=== PATIENT | female | born 1990 | race Caucasian/White ===

== ENCOUNTER 2023-01-12 08:50 | Emergency (ER) | payer BC, SELFPAY ==
--- NOTE | ~2023-01-12 | US_ITS ---
EXAMINATION: US venous doppler [facility] DATE: 01/12/2023 10:33 INDICATION: Left lower limb pain TECHNIQUE: Grayscale ultrasound images without and with compression and Doppler ultrasound images of the left lower extremity veins were obtained. COMPARISON: None. FINDINGS: The visualized portions of left common femoral vein, profunda (deep) femoral vein, femoral vein, popl iteal vein, peroneal veins, posterior tibial veins, gastrocnemius vein, lesser saphenous vein and gre ater saphenous vein outflow are patent. IMPRESSION: 1. No deep venous thrombosis in the left lower limb. Reviewed, dictated and finalized at location A. CIATE PROFESSOR OF GEOLOGY
[2023-01-12 08:53] VITALS: BP 146/99; PULSE 93; RESP 18; TEMP 36.4; O2SAT 100
--- NOTE | 2023-01-12 09:55 | ED.GENADULT ---
HPI - General Adult General Chief complaint: Extremity Injury, Lower Stated complaint: calf pain Time Seen by Provider: 01/12/23 09:21 History of Present Illness HPI narrative: Rosalia Donato is a 32 y/o female who presents with reports of having left calf pain that started last night at around 1730. She states that her big puppy ran head first in to the back of her left calf and started to have a lot of pain. She denies any pain to her ankle/ gandhi area. No numbness/tingling to her extremity. ROM to ankle is intact. Related Data Allergies Allergy/AdvReac Type Severity Reaction Status Date / Time No Known Allergies Allergy Verified 01/12/23 10:01 Review of Systems Review of Systems: CONSTITUTIONAL: Denies fever, chills, or sweats. EYES: Denies visual changes, redness, or discharge. ENT: Denies rhinorrhea, congestion, sore throat, or otalgia. CARDIOVASCULAR: Denies chest pain, palpitations, or edema. RESPIRATORY: Denies cough or dyspnea. GASTROINTESTINAL: Denies abdominal pain, nausea, vomiting, or diarrhea. GENITOURINARY: Denies dysuria or hematuria. SKIN: Denies rash or itching. MUSCULOSKELETAL: Complains of pain to left calf that started yesterday at around 1730 after her dog ran into her leg. NEUROLOGIC: Denies headache, numbness, dizziness, or weakness. PSYCHIATRIC: Denies anxiety or depression. Exam Narrative: GENERAL: Well-appearing, well-nourished, and in no acute distress. HEAD: Normocephalic, atraumatic. EYES: PERRLA and EOMI. ENT: Nares clear, no rhinorrhea or epistaxis. Mucous membranes moist. Oropharynx without tonsillar hypertrophy exudate or other lesions. NECK: Supple. No adenopathy or masses. No carotid bruits or JVD CHEST: Clear to auscultation. No respiratory distress. No wheezes rales or rhonchi HEART: Regular rate and rhythm. No murmur heard. Normal peripheral pulses. ABDOMEN: Soft, nontender, nondistended, normal active bowel sounds. EXTREMITIES: Normal range of motion. possible slight swelling noted to calf area, distal pulses present and strong/ ROM intact to ankle and leg/ no erythema/ ecchymosis noted on exam SKIN: Warm, dry, no rash. NEURO: No focal deficits. Alert and oriented x3. PSYCH: Normal mood and affect. Course Vital Signs Vital signs: Vital Signs Temperature 36.4 C 01/12/23 08:53 Pulse Rate 93 01/12/23 08:53 Respiratory Rate 18 01/12/23 08:53 Blood Pressure 146/99 H 01/12/23 08:53 Pulse Oximetry 100 01/12/23 08:53 Oxygen Delivery Room Air 01/12/23 08:53 Temperature 36.4 C 01/12/23 08:53 Pulse Rate 93 01/12/23 08:53 Respiratory Rate 18 01/12/23 08:53 Blood Pressure 146/99 H 01/12/23 08:53 Pulse Oximetry 100 01/12/23 08:53 Oxygen Delivery Room Air 01/12/23 08:53 Medical Decision Making MDM Narrative Medical decision making narrative: Normal range of motion. possible slight swelling noted to calf area, distal pulses present and strong/ ROM intact to ankle and leg/ no erythema/ ecchymosis noted on exam US- negative for DVT Likely a muscle contusion will d/c home with RICE therapy Close follow up with PCP Strict return precautions. Vital Signs Vital Signs: Vital Signs Temperature 36.4 C 01/12/23 08:53 Pulse Rate 93 01/12/23 08:53 Respiratory Rate 18 01/12/23 08:53 Blood Pressure 146/99 H 01/12/23 08:53 Pulse Oximetry 100 01/12/23 08:53 Oxygen Delivery Room Air 01/12/23 08:53 Temperature 36.4 C 01/12/23 08:53 Pulse Rate 93 01/12/23 08:53 Respiratory Rate 18 01/12/23 08:53 Blood Pressure 146/99 H 01/12/23 08:53 Pulse Oximetry 100 01/12/23 08:53 Oxygen Delivery Room Air 01/12/23 08:53 Vitals reviewed by me. Imaging Data My impression: Impressions Venous Doppler Study 01/12/23 10:41 IMPRESSION: 1. No deep venous thrombosis in the left lower limb. Discharge Plan Discharge Clinical Impression: Muscle contusion Contusion of left leg
[2023-01-12] MEDS: NAPROXEN 500 MG TABLET PO (10:04)
[2023-01-12] MEDS: ACETAMINOPHEN 500 MG TABLET 1000 MG PO (10:04)
== END 2023-01-12 11:33 | disposition home or self-care (01) ==
PROVIDERS: Emergency Provider Nurse Practitioner Family; PCP Family Medicine
DX: S80.12XA Contusion of left lower leg, initial encounter (principal); W54.1XXA Struck by dog, initial encounter
CPT/HCPCS: 93971; 99284; A9270

== ENCOUNTER 2023-03-23 07:41 | Emergency (ER) | payer BC, SELFPAY ==
--- NOTE | ~2023-03-23 | XR_ITS ---
XR chest 1V portable INDICATION: Shortness of breath, cough and chills. Asthma. TECHNIQUE: 2 view chest. FINDINGS: No prior studies for comparison. There is mild bilateral interstitial prominence and peribronchial cuffing. There is no focal consoli dation, pleural effusion, or pneumothorax. The cardiomediastinal silhouette is normal. IMPRESSION: 1. Findings most consistent with bronchiolitis versus an atypical or viral pneumonia. Reviewed, dictated and finalized at location B. COORDINATOR IMPRESSION: 1. Findings most consistent with bronchiolitis versus an atypical or viral pne [facility].
[2023-03-23 07:48] VITALS: BP 141/86; PULSE 113; RESP 18; TEMP 36.3; O2SAT 98
[2023-03-23 08:38] LABS: Influenza A QL RT-PCR Negative (Negative); Influenza B QL RT-PCR Negative (Negative); RSV RNA, RT-PCR Negative (Negative); SARS-CoV-2 RNA PCR Positive (Negative)
--- NOTE | 2023-03-23 08:44 | ED.GENADULT ---
HPI - General Adult General Chief complaint: Upper Respiratory Infection Stated complaint: flu Time Seen by Provider: 03/23/23 07:50 History of Present Illness HPI narrative: [age] old female presenting to the emergency department for evaluation of increased cough congestion and body aches that started yesterday. Patient states she was running a fever yesterday. Related Data Allergies Allergy/AdvReac Type Severity Reaction Status Date / Time No Known Allergies Allergy Verified 01/12/23 10:01 Review of Systems Review of Systems: All systems reviewed & are unremarkable except as noted in HPI and below Exam Narrative: APPEARANCE: Well appearing, no pain, no distress, well-nourished. HEAD: normocephalic, atraumatic. EYES: PERRLA/EOMI, conjunctivae clear. NOSE: Normal no drainage EARS:TMS clear with good light reflex. THROAT: Pharynx clear, no exudate. NECK: Supple. No adenopathy, no masses. RESPIRATORY: Airway patent, respirations nonlabored. Clear to auscultation bilaterally, no rales, rhonchi, wheezing. CARDIOVASCULAR: Regular rate and rhythm without murmurs rubs or gallops. ABDOMINAL: Soft, nontender, nondistended, normal bowel sounds MUSCULOSKELETAL: Moves all extremities. Strength/ROM intact, No edema, No calf tenderness. NEURO: Alert. Cranial nerves II through XII intact. Grossly intact SKIN: Warm, dry. Normal Color Course Course Emergency Course: 32-year-old female presenting to the emergency department for evaluation of cough and congestion. Patient did test positive for COVID. Chest x-ray showed atypical or viral pneumonia. Patient will be provided albuterol inhaler and Tessalon Perles for symptom control at home. Patient was updated on the results of the workup. All questions concerns were addressed and patient was well-appearing at time of discharge. Vital Signs Vital signs: Vital Signs Temperature 97.3 F L 03/23/23 07:48 Pulse Rate 113 H 03/23/23 07:48 Respiratory Rate 18 03/23/23 07:48 Blood Pressure 141/86 H 03/23/23 07:48 Pulse Oximetry 98 03/23/23 07:48 Oxygen Delivery Room Air 03/23/23 07:48 Temperature 97.3 F L 03/23/23 07:48 Pulse Rate 113 H 03/23/23 07:48 Respiratory Rate 16 03/23/23 09:05 Blood Pressure 141/86 H 03/23/23 07:48 Pulse Oximetry 97 03/23/23 09:05 Oxygen Delivery Room Air 03/23/23 07:48 Medical Decision Making Differential Diagnosis Differential Diagnosis: COVID, RSV, influenza, pneumonia Vital Signs Vital Signs: Vital Signs Temperature 97.3 F L 03/23/23 07:48 Pulse Rate 113 H 03/23/23 07:48 Respiratory Rate 18 03/23/23 07:48 Blood Pressure 141/86 H 03/23/23 07:48 Pulse Oximetry 98 03/23/23 07:48 Oxygen Delivery Room Air 03/23/23 07:48 Temperature 97.3 F L 03/23/23 07:48 Pulse Rate 113 H 03/23/23 07:48 Respiratory Rate 16 03/23/23 09:05 Blood Pressure 141/86 H 03/23/23 07:48 Pulse Oximetry 97 03/23/23 09:05 Oxygen Delivery Room Air 03/23/23 07:48 Lab Data Labs: Lab Results 03/23/23 Range/Units 07:57 Influenza A (RT-PCR) Negative (Negative) Influenza B (RT-PCR) Negative (Negative) RSV (RT-PCR) Negative (Negative) SARS-CoV-2 RNA (RT-PCR) Positive A (Negative) Discharge Plan Discharge Clinical Impression: COVID Patient Disposition: Home, Self-Care Condition: Stable Instructions: Antibiotic Form, COVID-19 (Coronavirus Disease 2019) (ED) Additional Instructions: Tylenol and ibuprofen for fever and for body aches. Albuterol inhaler for wheeze and Tessalon Perles for cough. Have close follow-up with your primary care physician. If you have any worsening symptoms then please call or return to the emergency department. Prescriptions: New albuterol sulfate 90 mcg/actuation HFA aerosol inhaler 1 puff inhalation QID PRN (Reason: shortness of breath or wheezing) Qty: 6.7 0RF benzonatate 100 mg capsule 100 mg PO Q6H PRN (R
[2023-03-23 09:05] VITALS: RESP 16; O2SAT 97
== END 2023-03-23 09:05 | disposition home or self-care (01) ==
PROVIDERS: Emergency Provider Emergency Medicine; PCP Family Medicine
DX: U07.1 COVID-19 (principal)
CPT/HCPCS: 71045; 87637; 99283

== ENCOUNTER 2023-09-04 12:55 | Emergency (ER) | payer BC, SELFPAY ==
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
[2023-09-04 13:03] VITALS: BP 150/99; PULSE 89; RESP 16; TEMP 36.4; O2SAT 99
--- NOTE | 2023-09-04 13:08 | ECG_ITS ---
Test Date: 2023-09-04 13:45:20 Measurements Intervals [place] Rate: 78 P: 48 [place]: 130 QRS: -3 QRSD: 105 T: 14 QT: 362 QTc: 414 Interpretive Statements SINUS RHYTHM POOR R-WAVE PROGRESSION OTHERWISE UNREMARKABLE ECG No previous ECG available for comparison Electronically Signed On 09-04-2023 15:57:48 CDT by Stevo Willis M.D.
--- NOTE | 2023-09-04 13:09 | ED.ABDPAIN ---
HPI - Abdominal Pain General Chief Complaint: Abdominal Pain Stated Complaint: abd pain Time Seen by Provider: 09/04/23 15:51 Focused HPI: 33-year-old female with history of asthma presents to the emergency department for epigastric abdominal pain for the past few days. Patient states she thought she had heartburn or gas so she has been taking [id number] antacids without improvement. She states she began vomiting last night and her pain has persisted which prompted her to come to the ED today. She denies chest pain. States the pain is in her epigastrium and wraps around to her back. States she had pain like this when she was 16 years old due to gallstones I have her gallbladder removed at that time. Last bowel movement was yesterday and normal. Denies diarrhea, hematemesis or coffee-ground emesis, hematochezia or melena, dysuria or hematuria. GENERAL: Well-appearing, well-nourished, and in no acute distress. HEAD: Normocephalic, atraumatic. CHEST: Clear to auscultation. ?No respiratory distress. ABDOMINAL: Mild tenderness to the epigastrium without rebound, guarding or rigidity. No CVA tenderness. HEART: Regular rate and rhythm.? NEURO: ?Alert and oriented x3. Patient screened in triage and initial orders placed.? ?Additional care and disposition to be based upon?diagnostic testing and treatment. History of Present Illness HPI narrative: 33-year-old female with history of asthma presents to the emergency department for epigastric abdominal pain for the past few days. Patient states she thought she had heartburn or gas so she has been taking [id number] antacids without improvement. She states she began vomiting last night and her pain has persisted which prompted her to come to the ED today. She denies chest pain. States the pain is in her epigastrium and wraps around to her back. States she had pain like this when she was 16 years old due to gallstones I have her gallbladder removed at that time. Last bowel movement was yesterday and normal. Denies diarrhea, hematemesis or coffee-ground emesis, hematochezia or melena, dysuria or hematuria. Related Data Allergies Allergy/AdvReac Type Severity Reaction Status Date / Time No Known Allergies Allergy Verified 09/04/23 15:50 Review of Systems Review of Systems: CONSTITUTIONAL: Denies fever, chills, or sweats. EYES: Denies visual changes, redness, or discharge. ENT: Denies rhinorrhea, congestion, sore throat, or otalgia. CARDIOVASCULAR: Denies chest pain, palpitations, or edema. RESPIRATORY: Denies cough or dyspnea. GASTROINTESTINAL: see HPI GENITOURINARY: Denies dysuria or hematuria. SKIN: Denies rash or itching. MUSCULOSKELETAL: Denies back pain, joint pain, or myalgia. NEUROLOGIC: Denies headache, numbness, or weakness. PSYCHIATRIC: Denies anxiety or depression. Exam Narrative: GENERAL: Well-appearing, well-nourished, and in no acute distress. HEAD: Normocephalic, atraumatic. EYES: PERRLA and EOMI. ENT: Nares clear, no rhinorrhea or epistaxis. Mucous membranes moist. NECK: Supple. CHEST: Clear to auscultation. No respiratory distress. HEART: Regular rate and rhythm. No murmur heard. Normal peripheral pulses. ABDOMEN: normoactive bowel sounds. Abdomen soft with minimal tenderness in the epigastric region. No rebound or guarding or rigidity. No CVA tenderness. EXTREMITIES: Normal range of motion. No edema. SKIN: Warm, dry, no rash. NEURO: No focal deficits. Alert and oriented x3 Course Vital Signs Vital signs: Vital Signs Temperature 97.6 F 09/04/23 13:03 Pulse Rate 89 09/04/23 13:03 Respiratory Rate 16 09/04/23 13:03 Blood Pressure 150/99 H 09/04/23 13:03 Pulse Oximetry 99 09/04/23 13:03 Temperature 97.6 F 09/04/23 13:03 Pulse Rate 82 09/04/23 18:19 Respiratory Rate 16 09/04/23 18:19 Blood Pressure 159/105 H 09/04/23 18:19 Pulse Oximetry 99 09/04/23 18:19 MDM - Abdominal Pain MDM Narrative Medic
[2023-09-04 13:44] LABS: Basophils Absolute Auto 0.1 K/mm3 (0.0-0.1); Basophils Percent Auto 0.5 % (0.2-1.2); Eosinophils Absolute Auto 0.1 K/mm3 (0-0.3); Eosinophils Percent Auto 0.4 % (0-4.4); Hematocrit 46.6 % (37.0-47.0); Immature Granulocyte Absolute 0.09 K/mm3 (0.00-0.031); Immature Granulocyte Percent A 0.6 % (0-0.5); Lymphocytes Absolute Auto 2.72 K/mm3 (0.9-3.2); Lymphocytes Percent Auto 18.9 % (18.3-44.2); Mean Corpuscular HGB Conc 32.2 g/dl (32-36); Mean Corpuscular Hemoglobin 28.5 pg (26-34); Mean Corpuscular Volume 88.6 fl (80-100); Mean Platelet Volume 10.1 fl (7.4-10.4); Monocytes Absolute Auto 0.8 K/mm3 (0.1-0.6); Monocytes Percent Auto 5.2 % (2.6-8.5); Neutrophils Absolute Auto 10.7 K/mm3 (1.3-6.7); Neutrophils Percent Auto 74.4 % (45.5-73.1); Platelet Count Result 343 k/mm3 (150-375); Red Blood Count 5.26 M/mm3 (4.2-5.4); Red Cell Distribution Width 13.2 % (11.5-14.5); White Blood Count 14.4 K/mm3 (4.5-10.0)
[2023-09-04 14:15] LABS: Appearance Urine Cloudy (Clear); Bacteria Urine 1+ /hpf; Bilirubin Urine Negative (Negative); Blood Urine Negative (Negative); Color Urine Yellow (Yellow); Glucose Urine UA Negative (Negative); Ketones Urine Trace mg/dL (Negative); Leukocyte Esterase Ur Negative LEU/UL (Negative); Need Manual Microscopic Reviewed; Nitrate Urine Negative (Negative); Non Pathogenic Casts 0-2; Protein Urine Trace mg/dL (Negative); RBC Urine 0-2 /hpf (0-2); Specific Grav Ur 1.025 (1.001-1.035); Squamous Epithelial Cell Urine Moderate /hpf (Few); Urobilinogen Urine 0.2 mg/dL (<2.0); pH Urine 5.5 (5.0-9.0)
[2023-09-04 14:34] LABS: Add Urine Microscopic? YES
[2023-09-04 15:50] VITALS: BP 156/99; PULSE 76; RESP 17; O2SAT 100
[2023-09-04 17:10] LABS: Alanine Aminotransferase 30 U/L (6-35); Albumin Level 4.6 g/dL (3.5-5.1); Alkaline Phosphatase 123 U/L (38-126); Anion Gap 10 mmol/L (4-12); Aspartate Amino Transferase 22 U/L (14-36); Bilirubin,Total 0.5 mg/dL (0.2-1.3); Blood Urea Nitrogen 5 mg/dL (7-17); Calcium 9.6 mg/dL (8.4-10.2); Carbon Dioxide 26 mmol/L (22-30); Chloride 103 mmol/L (98-107); Estimated CRCL calculation 147 ml/min; Estimated Glomerular Filt Rate > 60; Glucose 104 mg/dL (65-110); Lipase 37 U/L (23-300); Potassium 3.7 mmol/L (3.4-5.0); Sodium 139 mmol/L (137-145)
--- NOTE | 2023-09-04 17:13 | PC.NURSE ---
Pt to CT scan via stretcher at this time.
[2023-09-04 17:26] LABS: Troponin I < 0.012 ng/mL (0.000-0.034)
[2023-09-04] MEDS: FAMOTIDINE 20 MG/2 ML VIAL IV PUSH (18:16)
[2023-09-04] MEDS: BELLADONNA ALK/PHENOB ELIX 10 ML, MAG HYDROX/ALUMINUM HYD/SIMETH 30 ML, LIDOCAINE HCL 2... PO (18:16)
[2023-09-04 18:19] VITALS: BP 159/105; PULSE 82; RESP 16; O2SAT 99
[2023-09-04 19:27] VITALS: BP 153/100; PULSE 73; RESP 20; O2SAT 99
== END 2023-09-04 19:27 | disposition home or self-care (01) ==
PROVIDERS: Emergency Provider Physician Assistant; PCP Family Medicine
DX: K29.00 Acute gastritis without bleeding (principal); J45.909 Unspecified asthma, uncomplicated; Z90.49 Acquired absence of other specified parts of digestive tract
CPT/HCPCS: 36415; 74177; 80053; 81001; 81025; 83690; 84484; 85025; 87086; 87088; 93005; 96374; 99284; A9270; Q9967

== ENCOUNTER 2023-10-27 18:14 | Observation (INO) | payer BC, SELFPAY ==
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
--- NOTE | ~2023-10-27 | XR_ITS ---
EXAMINATION: XR chest 1V portable DATE: 10/28/2023 12:52 INDICATION: Desaturation after intubation. TECHNIQUE: A single frontal view of the chest was obtained. COMPARISON: Chest view 03/23/2023, CT abdomen and pelvis 10/27/2023 FINDINGS: The lung volumes are small. There are airspace opacities in right perihilar regions and all left lung zones. No pleural effusion or pneumothorax. The heart size is normal. The endotracheal tub e tip is in the right mainstem bronchus. IMPRESSION: 1. Endotracheal tube tip in the right mainstem bronchus. Retraction is recommended. I discussed this finding with the medical team at the time of the dictation. 2. Small lung volumes with airspace opacities in right perihilar region and all left lung zones, like ly at least predominantly atelectasis. Pneumonia cannot be excluded. Reviewed, dictated and finalized at location A. IMPRESSION: 1. Endotracheal tube tip in the right mainstem bronchus. Retraction is recommen ded. I discussed this finding with the medical team at the time of the dictatio n. 2. Small lung volumes with airspace opacities in right perihilar region and all left lung zones, likely at least predominantly atelectasis. Pneumonia cannot b e excluded.
--- NOTE | ~2023-10-27 | XR_ITS ---
EXAMINATION: XR ERCP DATE: 10/28/2023 13:38 INDICATION: Gallstones. Stent removal. TECHNIQUE: A single fluoroscopic spot image of the right upper quadrant were obtained during endoscop ic retrograde cholangiopancreatography (ERCP) performed by Dr. Shaw. Radiologist was not p resent for the imaging or procedure. The amount of fluoroscopy time used during this procedure was 1. 5 minutes. COMPARISON: None. FINDINGS: Endoscopic cannulation of the ampulla with wire and injected contrast extending into a normal caliber common bile duct. The biliary stent seen on the prior CT is no longer visualized and has likely been removed. IMPRESSION: 1. Interval removal of a biliary stent. Contrast opacified common bile duct appears unremarkable. Ple ase refer to the ERCP procedure note for additional details. Reviewed, dictated and finalized at location A. IMPRESSION: 1. Interval removal of a biliary stent. Contrast opacified common bile duct hope ears unremarkable. Please refer to the ERCP procedure note for additional detai ls.
[2023-10-27 18:16] VITALS: BP 167/100; PULSE 106; RESP 16; TEMP 36.6; O2SAT 98
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
[2023-10-27 18:33] LABS: Basophils Absolute Auto 0.1 K/mm3 (0.0-0.1); Basophils Percent Auto 0.4 % (0.2-1.2); Eosinophils Percent Auto 0.3 % (0-4.4); Hematocrit 43.6 % (37.0-47.0); Hemoglobin 14.8 g/dL (12.0-15.0); Immature Granulocyte Absolute 0.08 K/mm3 (0.00-0.031); Immature Granulocyte Percent A 0.6 % (0-0.5); Lymphocytes Absolute Auto 1.02 K/mm3 (0.9-3.2); Lymphocytes Percent Auto 7.9 % (18.3-44.2); Mean Corpuscular HGB Conc 33.9 g/dl (32-36); Mean Corpuscular Hemoglobin 29.7 pg (26-34); Mean Corpuscular Volume 87.6 fl (80-100); Mean Platelet Volume 10.2 fl (7.4-10.4); Monocytes Absolute Auto 0.9 K/mm3 (0.1-0.6); Monocytes Percent Auto 7.2 % (2.6-8.5); Neutrophils Absolute Auto 10.8 K/mm3 (1.3-6.7); Neutrophils Percent Auto 83.6 % (45.5-73.1); Platelet Count Result 331 k/mm3 (150-375); Red Blood Count 4.98 M/mm3 (4.2-5.4); Red Cell Distribution Width 12.6 % (11.5-14.5)
[2023-10-27 18:43] LABS: Lactic Acid Reflex 0.8 mmol/L (0.7-2.0)
[2023-10-27 18:45] LABS: Alanine Aminotransferase 439 U/L (6-35); Albumin Level 4.5 g/dL (3.5-5.1); Alkaline Phosphatase 156 U/L (38-126); Anion Gap 11 mmol/L (4-12); Aspartate Amino Transferase 257 U/L (14-36); Bilirubin,Total 1.1 mg/dL (0.2-1.3); Blood Urea Nitrogen 4 mg/dL (7-17); Calcium 9.1 mg/dL (8.4-10.2); Carbon Dioxide 23 mmol/L (22-30); Chloride 101 mmol/L (98-107); Estimated CRCL calculation 174 ml/min; Estimated Glomerular Filt Rate > 60; Glucose 104 mg/dL (65-110); Lipase 26 U/L (23-300); Potassium 3.9 mmol/L (3.4-5.0); Sodium 135 mmol/L (137-145)
[2023-10-27 22:06] LABS: BEDSIDEPREGUCG Negative
--- NOTE | 2023-10-27 22:33 | ED.GENADULT ---
HPI - General Adult General Chief complaint: Nausea/Vomiting/Diarrhea Stated complaint: gastritis, fever, vomiting Time Seen by Provider: 10/27/23 21:36 History of Present Illness HPI narrative: patient is a 23-year-old female presents emergency department with chief complaint of gastritis vomiting and fevers. The patient reports that for several days she has been having epigastric discomfort right upper quadrant discomfort the patient reports pain radiates to her back the patient reports she has had fevers at home and reports that they have been intermittent today. The patient reports she has prior history of a cholecystectomy also had injuries to her her liver and had a biliary stent placed patient reports this was done in 2019 in [place] the patient reports that the stent has not been changed since then and reports that she has not followed up with a GI specialist Related Data Allergies Allergy/AdvReac Type Severity Reaction Status Date / Time No Known Allergies Allergy Verified 09/04/23 15:50 Review of Systems Review of Systems: A 10 system review of systems was completed on the patient and is negative except for what is stated in the HPI. Nursing and ancillary documentation was reviewed. Exam Narrative: GENERAL: Well-appearing, well-nourished, and in no acute distress. HEAD: Normocephalic, atraumatic. EYES: PERRLA and EOMI. ENT: Nares clear, no rhinorrhea or epistaxis. Mucous membranes moist. NECK: Supple. CHEST: Clear to auscultation. No respiratory distress. HEART: Regular rate and rhythm. No murmur heard. Normal peripheral pulses. ABDOMEN: Soft, tenderness to palpation epigastric and right upper quadrant nondistended, normal active bowel sounds. EXTREMITIES: Normal range of motion. No edema. SKIN: Warm, dry, no rash. NEURO: No focal deficits. Alert and oriented x3. PSYCH: Normal mood and affect. Course Vital Signs Vital signs: Vital Signs Temperature 36.6 C 10/27/23 18:16 Pulse Rate 106 H 10/27/23 18:16 Respiratory Rate 16 10/27/23 18:16 Blood Pressure 167/100 H 10/27/23 18:16 Pulse Oximetry 98 10/27/23 18:16 Temperature 36.6 C 10/27/23 18:16 Pulse Rate 106 H 10/27/23 18:16 Respiratory Rate 16 10/27/23 18:16 Blood Pressure 167/100 H 08/20/24 18:16 Pulse Oximetry 98 10/27/23 18:16 Medical Decision Making MDM Narrative Medical decision making narrative: differential diagnosis includes cholangitis, he biliary stent obstruction, pancreatitis, colitis, diverticulitis laboratory studies were obtained showed a white count of 13.0 electrolytes showed a elevated AST and ALT bilirubin was normal at 1.1 lipase was normal at 26 [address]ysis currently pending CT scan of the abdomen pelvis showed 1. New hypoenhancing region extending across the myometrium at the posterior uterine fundus which is new since the prior study suggesting this could be related to either menstrual cycle or . Correlate with beta hCG level. 2. Status post cholecystectomy with unchanged mild intra and extra hepatic biliary ductal dilation with common bile duct biliary stent in expected position. given the patient has a biliary stent has elevated liver enzymes and a white count of 13.0 the case was discussed with Dr. Godoy of the GI service who will consult on the patient the patient was started on Zosyn blood cultures were obtained Vital Signs Vital Signs: Vital Signs Temperature 36.6 C 10/27/23 18:16 Pulse Rate 106 H 10/27/23 18:16 Respiratory Rate 16 10/27/23 18:16 Blood Pressure 167/100 H 10/27/23 18:16 Pulse Oximetry 98 10/27/23 18:16 Temperature 36.6 C 10/27/23 18:16 Pulse Rate 106 H 10/27/23 18:16 Respiratory Rate 16 10/27/23 18:16 Blood Pressure 167/100 H 10/27/23 18:16 Pulse Oximetry 98 10/27/23 18:16 Lab Data 10/27/23 18:27 10/27/23 18:27 Labs: Lab Results 10/27/23 10/27/23 10/27/23 Ran
[2023-10-27 22:38] LABS: Add Urine Microscopic? YES; Appearance Urine Clear (Clear); Bacteria Urine 1+ /hpf; Bilirubin Urine Negative (Negative); Blood Urine Negative (Negative); Color Urine Yellow (Yellow); Glucose Urine UA Negative (Negative); Ketones Urine 1+ mg/dL (Negative); Leukocyte Esterase Ur Negative LEU/UL (Negative); Need Manual Microscopic Reviewed; Nitrate Urine Negative (Negative); Non Pathogenic Casts 0-2; Protein Urine Trace mg/dL (Negative); RBC Urine 0-2 /hpf (0-2); Specific Grav Ur > 1.045 (1.001-1.035); Squamous Epithelial Cell Urine Moderate /hpf (Few); pH Urine 5.5 (5.0-9.0)
[2023-10-27] MEDS: PIPERACILLN/TAZ 3.375GM/NS50ML 3.375 GM/50 ML BAG IVPB (22:40)
[2023-10-27] MEDS: SODIUM CHLORIDE 0.9% IV 1,000 ML 999 ML IV CONT ×2 (22:40)
[2023-10-27 23:42] VITALS: BP 141/77; PULSE 86; RESP 18; TEMP 36.9; O2SAT 100; BMI 44.6
[2023-10-27 23:52] VITALS: BP 154/96; PULSE 92; RESP 18; O2SAT 99
[2023-10-28] VITALS (13 sets, daily range): BP systolic 120–140; BP diastolic 70–86; PULSE 87–105; RESP 16–30; TEMP 36.2–36.8; O2SAT 94–100; BMI 44.6
[2023-10-28] MEDS: SODIUM CHLORIDE 0.9% IV 1,000 ML 150 ML IV CONT (00:12)
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
[2023-10-28] MEDS: ONDANSETRON INJ 4 MG/2 ML VIAL IV PUSH (01:57)
[2023-10-28] MEDS: MORPHINE SULFATE (*CRX) 4 MG/ML INJ 2 MG IV PUSH (01:57)
[2023-10-28] MEDS: PIPERACILLN/TAZ 3.375GM/NS50ML 3.375 GM/50 ML BAG IVPB ×4 (04:46→23:05)
[2023-10-28 04:57] LABS: Basophils Absolute Auto 0.1 K/mm3 (0.0-0.1); Basophils Percent Auto 0.8 % (0.2-1.2); Eosinophils Absolute Auto 0.1 K/mm3 (0-0.3); Eosinophils Percent Auto 1.1 % (0-4.4); Hematocrit 42.8 % (37.0-47.0); Hemoglobin 13.5 g/dL (12.0-15.0); Immature Granulocyte Percent A 1.4 % (0-0.5); Lymphocytes Percent Auto 21.7 % (18.3-44.2); Mean Corpuscular HGB Conc 31.5 g/dl (32-36); Mean Corpuscular Volume 91.8 fl (80-100); Mean Platelet Volume 10.1 fl (7.4-10.4); Monocytes Absolute Auto 0.7 K/mm3 (0.1-0.6); Monocytes Percent Auto 9.1 % (2.6-8.5); Neutrophils Absolute Auto 4.9 K/mm3 (1.3-6.7); Neutrophils Percent Auto 65.9 % (45.5-73.1); Platelet Count Result 256 k/mm3 (150-375); Red Blood Count 4.66 M/mm3 (4.2-5.4); Red Cell Distribution Width 12.7 % (11.5-14.5); White Blood Count 7.4 K/mm3 (4.5-10.0)
[2023-10-28 05:09] LABS: Alanine Aminotransferase 385 U/L (6-35); Albumin Level 3.7 g/dL (3.5-5.1); Alkaline Phosphatase 147 U/L (38-126); Anion Gap 9 mmol/L (4-12); Aspartate Amino Transferase 316 U/L (14-36); Bilirubin,Total 2.1 mg/dL (0.2-1.3); Blood Urea Nitrogen 3 mg/dL (7-17); Calcium 8.3 mg/dL (8.4-10.2); Carbon Dioxide 23 mmol/L (22-30); Chloride 107 mmol/L (98-107); Estimated CRCL calculation 142 ml/min; Estimated Glomerular Filt Rate > 60; Glucose 95 mg/dL (65-110); Potassium 3.5 mmol/L (3.4-5.0); Sodium 139 mmol/L (137-145)
--- NOTE | 2023-10-28 06:23 | ADMGEN ---
This patient, Rosalia Donato, was admitted to Medical Room 248-. Patient/family oriented to hospital policies and general routines including ID bracelet, bed and alarms, visiting hours, pain management, procedures, bathroom and other care routines, personal items, smoking policy, room service/diet, and visiting hours. Information on how to activate the Rapid Response Team has been discussed. Patient/Family are encouraged to report perceived risks to care and to ask questions if they do not understand what they are told or what they should do.
[2023-10-28] MEDS: PANTOPRAZOLE SODIUM IV 40 MG VIAL IV PUSH ×2 (08:33→21:02)
[2023-10-28] MEDS: SODIUM CHLORIDE 0.9% IV 1,000 ML 100 ML IV CONT ×2 (10:42→16:50)
--- NOTE | 2023-10-28 11:06 | PM.IMPN ---
Progress Note: A&P Assessment and Plan (1) Abdominal pain: Qualifiers: Abdominal location: epigastric Qualified Code(s): R10.13 - Epigastric pain Code(s): R10.9 - Unspecified abdominal pain Status: Acute Assessment and Plan: CT abdomen and pelvis shows biliary stent in expected location. Patient has right upper quadrant to midepigastric pain with leukocytosis of 13,000 and transaminitis. She has been having nausea and vomiting. Concerns for cholangitis with retained biliary stent. GI was consulted for ERCP Stent removed during ERCP Advanced diet as tolerated Continue Zosyn Blood cultures with no growth to date Leukocytosis is resolving (2) Elevated liver enzymes: Code(s): R74.8 - Abnormal levels of other serum enzymes Status: Acute Assessment and Plan: Elevations secondary to possible cholangitis Trend LFTs Plan DVT prophylaxis: SCDs GI prophylaxis: Protonix Glycemic control: na Code Status: Full code Disposition: 33-year-old female with abdominal pain with suspected cholangitis from retained biliary stent. GI was consulted for ERCP. She is on IV Zosyn. Labs are down trending. Possible discharge in the next 1-2 days. Medication reconciliation obtained via the following: Nurse completed on admission The file time of this note does not necessarily represent the time the patient was seen. Subjective Date/time seen: 10/28/23 11:06 Interval history: 33-year-old female with a past medical history of obstructive sleep apnea with CPAP, prior cholecystectomy with biliary stent placement in 2019 with presence of persistent stent who presented to the ER via private vehicle due to complaints of epigastric discomfort, vomiting and subjective fevers. 10/27: Patient is seen after her ERCP. She is resting in bed in no acute distress. She says that her abdominal pain and back pain has resolved since her procedure. Exam Narrative: General: well appearing, appears stated age. HEENT: normocephalic, atraumatic. Mucous membranes moist. EOMI, PERRLA, bilateral sclera anicteric, no conjunctival injection. Neck supple without JVD, lymphadenopathy, or bruit. Respiratory: clear to auscultation bilaterally. No rales/rhonic/wheezes. Cardiovascular: Regular rate and rhythm, normal S1-S2 upon auscultation. No murmurs, rubs, or clicks. PMI is nondisplaced, capillary refill less than 3 second. Abdomen: Soft, round, no pulsatile masses, nondistended and nontender. No rebound, no guarding. No CVA tenderness, no hepatosplenomegaly. Bowel sounds present to all four quadrants. No high pitch or tinkling sounds, resonant to percussion. Extremities: No cyanosis, clubbing, or edema present. Pulses are palpable 2/2. Active ROM to all four extremities. Neuro: Alert and orientated x 4. PERRLA. Cranial nerves 2-12 intact without focal deficit. Skin: Warm, dry, and intact, without rash, erythema, or lesion. Lines: Incisions: Psych: pleasant, cooperative, normal speech, normal affect, no hallucinations, no dysarthria Objective Data Vital Signs Vital Signs: Vital Signs - 24 hr 10/27/23 18:16 10/27/23 23:42 10/27/23 23:52 Temperature 97.8 F 98.4 F Pulse Rate 106 H 86 92 Respiratory Rate 16 18 18 Blood Pressure 167/100 H 141/77 H 154/96 H Pulse Oximetry 98 100 99 Oxygen Delivery 10/28/23 00:00 10/28/23 04:58 10/28/23 08:30 Temperature 98.0 F Pulse Rate 87 Respiratory Rate 17 Blood Pressure 132/84 Pulse Oximetry 100 Oxygen Delivery Room Air Room Air Intake/Output Intake/Output: Intake & Output 10/25/23 10/26/23 10/27/23 10/28/23 23:59 23:59 23:59 23:59 Intake Total 2049 105 Output Total 999 Balance 2049 50 Meds/Results Medications: Active Medications Generic Name Dose Route Start Last Admin Trade Name Priya
[2023-10-28] MEDS: LACTATED RINGERS 1,000 ML 150 ML IV CONT (11:26)
--- NOTE | 2023-10-28 11:26 | SUR.PREOP ---
Wedding rings given to Tay in preop.
--- NOTE | 2023-10-28 11:46 | WPDANESEPPF ---
Anes - Initial Pre Proc Eval Procedure: Operation Date: 10/28/23 13:00 Proposed Procedures p Endoscopic Retro Cholangiopancreatogram - Andrey Shaw MD Date/Time: 10/28/23 11:46 Surgeon: Gali López APRN Pre Op Diagnosis: Abdominal pain elevated liver enzymes biliary sten Patient Data Age: 33 Gender: F Height: 1.52 m Weight: 103.7 kg Last Vital Signs Temp 97.4 F L 10/28/23 11:24 Pulse 89 10/28/23 11:24 Resp 18 10/28/23 11:24 BP 137/80 10/28/23 11:24 Pulse Ox 100 10/28/23 11:24 O2 Del Method Room Air 10/28/23 11:24 Allergies Allergy/AdvReac Type Severity Reaction Status Date / Time No Known Allergies Allergy Verified 10/27/23 22:45 Home Medications Medication Instructions Recorded Confirmed Type albuterol sulfate 90 mcg/actuation 1 puff inhalation QID PRN 03/23/23 10/27/23 Rx aerosol inhaler shortness of breath or wheezing #6.7 grams buspirone 15 mg tablet 15 mg PO HS 10/27/23 10/27/23 History carbamazepine 200 mg 200 mg PO HS 10/27/23 10/27/23 History tablet,extended release,12 hr diclofenac sodium 75 mg 75 mg PO PRN PRN Pain 10/27/23 10/27/23 History tablet,delayed release ergocalciferol (vitamin D2) 1,000 1,250 mcg PO WEEKLY 10/27/23 10/27/23 History unit capsule famotidine 20 mg tablet 40 mg PO DAILY 10/27/23 10/27/23 History omeprazole 20 mg capsule,delayed 20 mg PO BID 10/27/23 10/27/23 History release Laboratory Tests 10/27/23 10/27/23 10/27/23 18:27 18:27 18:27 WBC 13.0 H K/mm3 (4.5-10.0) RBC 4.98 M/mm3 (4.2-5.4) Hgb 14.8 g/dL (12.0-15.0) Hct 43.6 % (37.0-47.0) MCV 87.6 fl (80-100) MCH 29.7 pg (26-34) MCHC 33.9 g/dl (32-36) RDW 12.6 % (11.5-14.5) Plt Count 331 k/mm3 (150-375) MPV 10.2 fl (7.4-10.4) Immature Gran % (Auto) 0.6 H % (0-0.5) Neut % (Auto) 83.6 H % (45.5-73.1) Lymph % (Auto) 7.9 L % (18.3-44.2) [place] % (Auto) 7.2 % (2.6-8.5) Eos % (Auto) 0.3 % (0-4.4) Baso % (Auto) 0.4 % (0.2-1.2) Lymph # (Auto) 1.02 K/mm3 (0.9-3.2) [place] # (Auto) 0.9 H K/mm3 (0.1-0.6) Eos # (Auto) 0.0 K/mm3 (0-0.3) Baso # (Auto) 0.1 K/mm3 (0.0-0.1) Abs Immat Gran (auto) 0.08 H K/mm3 (0.00-0.031) Absolute Neuts (auto) 10.8 H K/mm3 (1.3-6.7) Absolute Nucleated RBC 0.000 K/mm3 (0.0-0.012) Nucleated RBC % 0.0 % (0.0-0.2) Sodium Cancelled 135 L mmol/L (137-145) Potassium Cancelled 3.9 mmol/L (3.4-5.0) Chloride Cancelled Carbon Dioxide Anion Gap BUN Creatinine Estim Creat Clear Calc Estimated GFR Glucose Lactic Acid Calcium Total Bilirubin AST ALT Alkaline Phosphatase Total Protein Albumin Lipase Urine Color Urine Appearance Urine pH Ur Specific [place] Urine Protein Urine Glucose (UA) Urine Ketones Ur Blood (Man) Urine Nitrate Urine Bilirubin Urine Urobilinogen Add Ur Microanalysis Leukocyte Esterase Rfl Urine RBC Urine WBC Ur Squamous Epith Cells Urine Bacteria Urine Casts POC Urine HCG, Qual POC Ur Preg QC 10/27/23 10/27/23 10/27/23 18:27 18:27 18:27 WBC RBC Hgb Hct MCV MCH MCHC RDW Plt Count MPV Immature Gran % (Auto) Neut % (Auto) L
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
[2023-10-28] MEDS: ALBUTEROL SULFATE NEB 2.5 MG/3 ML INH 1.25 MG INHALATION (13:45)
[2023-10-28] MEDS: CARBAMAZEPINE XR 200 MG TAB.ER.12H PO (21:02)
[2023-10-28] MEDS: busPIRone HCL 5 MG TABLET 15 MG PO (21:02)
[2023-10-28] MEDS: WATER FOR IRRIGATION, STERILE 1,000 ML BOTTLE 1000 ML (21:07)
[2023-10-29] MEDS: PIPERACILLN/TAZ 3.375GM/NS50ML 3.375 GM/50 ML BAG IVPB ×2 (05:05→12:14)
[2023-10-29 05:11] VITALS: BP 124/85; PULSE 82; RESP 17; TEMP 36.8; O2SAT 100
[2023-10-29] MEDS: FAMOTIDINE 20 MG TABLET 40 MG PO (07:58)
[2023-10-29] MEDS: PANTOPRAZOLE 40 MG TABLET PO (07:58)
[2023-10-29 08:40] LABS: Basophils Percent Auto 0.4 % (0.2-1.2); Eosinophils Absolute Auto 0.1 K/mm3 (0-0.3); Eosinophils Percent Auto 0.5 % (0-4.4); Hematocrit 41.3 % (37.0-47.0); Hemoglobin 13.2 g/dL (12.0-15.0); Immature Granulocyte Absolute 0.08 K/mm3 (0.00-0.031); Immature Granulocyte Percent A 0.9 % (0-0.5); Lymphocytes Absolute Auto 2.16 K/mm3 (0.9-3.2); Mean Corpuscular Hemoglobin 29.5 pg (26-34); Mean Corpuscular Volume 92.4 fl (80-100); Mean Platelet Volume 10.7 fl (7.4-10.4); Monocytes Absolute Auto 0.7 K/mm3 (0.1-0.6); Monocytes Percent Auto 7.1 % (2.6-8.5); Neutrophils Absolute Auto 6.4 K/mm3 (1.3-6.7); Neutrophils Percent Auto 68.1 % (45.5-73.1); Red Blood Count 4.47 M/mm3 (4.2-5.4); Red Cell Distribution Width 12.6 % (11.5-14.5); White Blood Count 9.4 K/mm3 (4.5-10.0)
[2023-10-29 08:55] LABS: Platelet Count Result 249 k/mm3 (150-375)
--- NOTE | 2023-10-29 09:27 | P.PNAN_ITS ---
Anes - Prog Note Post-Op Date/Time: 10/29/23 09:27 Cardiovascular status: normal Respiratory status: normal Airway patency: baseline Mental status: baseline Post-Op hydration status: normal Vital Signs: Last Vital Signs Temp 36.8 C 10/29/23 05:11 Pulse 82 10/29/23 05:11 Resp 17 10/29/23 05:11 BP 124/85 10/29/23 05:11 Pulse Ox 100 10/29/23 05:11 O2 Del Method Room Air 10/29/23 08:00 O2 Flow Rate 6 10/28/23 14:03 Pain Score (VAS): 04/18 I/O: Intake & Output 10/28/23 10/29/23 10/29/23 23:59 07:59 15:59 Intake Total 170 600 Output Total 1900 600 Balance -1730 0 Laboratory Tests 10/29/23 08:33 10/29/23 08:33 WBC 9.4 RBC 4.47 Hgb 13.2 Hct 41.3 MCV 92.4 MCH 29.5 MCHC 32.0 RDW 12.6 Plt Count 249 MPV 10.7 H Immature Gran % (Auto) 0.9 H Neut % (Auto) 68.1 Lymph % (Auto) 23.0 [place] % (Auto) 7.1 Eos % (Auto) 0.5 Baso % (Auto) 0.4 Lymph # (Auto) 2.16 [place] # (Auto) 0.7 H Eos # (Auto) 0.1 Baso # (Auto) 0.0 Abs Immat Gran (auto) 0.08 H Absolute Neuts (auto) 6.4 Absolute Nucleated RBC 0.000 Nucleated RBC % 0.0 % Immature Plt Fraction 6.0 Sodium Pending Potassium Pending Chloride Pending Carbon Dioxide Pending Anion Gap Pending BUN Pending Creatinine Pending Estim Creat Clear Calc Pending Estimated GFR Pending Glucose Pending Calcium Pending Total Bilirubin Pending AST Pending ALT Pending Alkaline Phosphatase Pending Total Protein Pending Albumin Pending Microbiology 10/27/23 22:16 Urine Clean Catch Urine Culture - Final 10/27/23 22:29 Blood Blood Culture - Preliminary 10/27/23 22:16 Blood Blood Culture - Preliminary Post-procedural complaints: none Patient Feedback: Patient satisfied with anesthetic care.
[2023-10-29 09:28] VITALS: O2SAT 100
[2023-10-29 10:05] LABS: Alanine Aminotransferase 294 U/L (6-35); Albumin Level 3.7 g/dL (3.5-5.1); Alkaline Phosphatase 143 U/L (38-126); Anion Gap 7 mmol/L (4-12); Aspartate Amino Transferase 85 U/L (14-36); Bilirubin,Total 0.5 mg/dL (0.2-1.3); Blood Urea Nitrogen 6 mg/dL (7-17); Calcium 8.9 mg/dL (8.4-10.2); Carbon Dioxide 27 mmol/L (22-30); Chloride 104 mmol/L (98-107); Estimated CRCL calculation 142 ml/min; Estimated Glomerular Filt Rate > 60; Glucose 106 mg/dL (65-110); Potassium 3.5 mmol/L (3.4-5.0); Sodium 138 mmol/L (137-145)
--- NOTE | 2023-10-29 13:31 | PM.DS ---
DS: Admitting Diagnosis Discharge Date 10/28 Admitting Diagnosis Abdominal pain DS: Discharge Diagnosis Discharge Diagnosis (1) Abdominal pain: Qualifiers: Abdominal location: epigastric Qualified Code(s): R10.13 - Epigastric pain Code(s): R10.9 - Unspecified abdominal pain Status: Acute Assessment and Plan: CT abdomen and pelvis shows biliary stent in expected location. Patient has right upper quadrant to midepigastric pain with leukocytosis of 13,000 and transaminitis. She has been having nausea and vomiting. Concerns for cholangitis with retained biliary stent. GI was consulted for ERCP Stent removed during ERCP Advanced diet as tolerated Continue Zosyn Blood cultures with no growth to date Leukocytosis is resolving (2) Elevated liver enzymes: Code(s): R74.8 - Abnormal levels of other serum enzymes Status: Acute Assessment and Plan: Elevations secondary to possible cholangitis Trend LFTs Plan DVT prophylaxis: SCDs GI prophylaxis: Protonix Glycemic control: na Code Status: Full code Disposition: 33-year-old female with abdominal pain with suspected cholangitis from retained biliary stent. GI was consulted for ERCP. She is on IV Zosyn. Labs are down trending. Possible discharge in the next 1-2 days. Medication reconciliation obtained via the following: Nurse completed on admission The file time of this note does not necessarily represent the time the patient was seen. DS: Summary Hospital Course Reason for hospitalization: Cholangitis Hospital Course: 33-year-old female with a past medical history of obstructive sleep apnea with CPAP, prior cholecystectomy with biliary stent placement in 2019 with presence of persistent stent who presented to the ER via private vehicle due to complaints of epigastric discomfort, vomiting and subjective fevers. Patient was found have biliary stent from a previous surgery (5 years ago) with mild intra and extrahepatic biliary duct dilatation. GI was consulted and underwent ERCP for stent removal. Patient was unaware of the presence of the biliary stent. After her procedure she had immediate pain relief and her liver enzymes began to return to baseline. Blood cultures were negative. Overall she did well and was discharged home with 3 more days of oral antibiotic therapy and follow-up with her primary care provider. Time Spent with Patient Time attestation: Total time spent providing and/or coordinating discharge services: 72 Exam Narrative: General: well appearing, appears stated age. HEENT: normocephalic, atraumatic. Mucous membranes moist. EOMI, PERRLA, bilateral sclera anicteric, no conjunctival injection. Neck supple without JVD, lymphadenopathy, or bruit. Respiratory: clear to auscultation bilaterally. No rales/rhonic/wheezes. Cardiovascular: Regular rate and rhythm, normal S1-S2 upon auscultation. No murmurs, rubs, or clicks. PMI is nondisplaced, capillary refill less than 3 second. Abdomen: Soft, round, no pulsatile masses, nondistended and nontender. No rebound, no guarding. No CVA tenderness, no hepatosplenomegaly. Bowel sounds present to all four quadrants. No high pitch or tinkling sounds, resonant to percussion. Extremities: No cyanosis, clubbing, or edema present. Pulses are palpable 2/2. Active ROM to all four extremities. Neuro: Alert and orientated x 4. PERRLA. Cranial nerves 2-12 intact without focal deficit. Skin: Warm, dry, and intact, without rash, erythema, or lesion. Lines: Incisions: Psych: pleasant, cooperative, normal speech, normal affect, no hallucinations, no dysarthria DS: Data Data Completed and Pending Labs on day of discharge: Labs from last 24 hours 10/29/23 10/29/23 08:59 08:33 WBC 9.4 RBC 4.47 Hgb 13.2 Hct 41.3 MCV 92.4 MCH 29.5 M
[2023-10-29 14:00] VITALS: BP 128/78; PULSE 80; RESP 17; TEMP 36.8; O2SAT 100
--- NOTE | 2023-10-29 15:17 | WPDGIPROGNO ---
Progress Note: A&P Assessment and Plan (1) Cholangitis: Code(s): K83.09 - Other cholangitis Status: Acute Assessment and Plan: bile duct stent removed and swept sludge she is doing much better she can go home with oral abx (2) History of biliary stent insertion: Code(s): Z98.890 - Other specified postprocedural states Status: Acute (3) Elevated liver enzymes: Code(s): R74.8 - Abnormal levels of other serum enzymes Status: Acute Assessment and Plan: already trending down (4) Abdominal pain: Qualifiers: Abdominal location: epigastric Qualified Code(s): R10.13 - Epigastric pain Code(s): R10.9 - Unspecified abdominal pain Status: Acute Assessment and Plan: resolved Subjective Date/time seen: 10/29/23 15:17 Interval history: ercp yesterday with removal of stent and sweeping bile duct doing better today and tolerating diet Review of Systems Review of Systems: All systems reviewed & are unremarkable except as noted in HPI and below Exam Const: General: comfortable and no acute distress HENMT: Face/Nose/Sinus: Normal nares present Eyes: General: appearance normal, both eyes and all related structures Neck: Neck: no JVD Resp: Auscultation: clear to auscultation bilaterally Cardio: Rate: regular rate Rhythm: regular rhythm GI: Inspection: non-distended GI Palp: Yes Soft to palpation and No Tenderness to palpation present (GI) Auscultation: normal bowel sounds Skin: General skin exam: normal color Neuro: General: gait normal Speech: normal speech Extrem: General: normal to inspection Psych: Mental Status: mental status grossly normal Objective Data Vital Signs Vital Signs: Vital Signs - 24 hr 10/28/23 19:33 10/28/23 20:00 10/29/23 05:11 Temperature 98.3 F 98.3 F Pulse Rate 99 82 Respiratory Rate 18 17 Blood Pressure 140/80 124/85 Pulse Oximetry 97 100 Oxygen Delivery Room Air 10/29/23 08:00 10/29/23 09:28 10/29/23 14:00 Temperature 98.2 F Pulse Rate 80 Respiratory Rate 17 Blood Pressure 128/78 Pulse Oximetry 100 100 Oxygen Delivery Room Air Room Air Intake/Output Intake/Output: Intake & Output 10/26/23 10/27/23 10/28/2324 23:59 23:59 23:59 23:59 Intake Total 2049 2069 840 Output Total 2900 600 Balance 2049 -83 240 Meds/Results Medications: Active Medications Generic Name Dose Route Start Last Admin Trade Name Freq PRN Reason Stop Dose Admin Albuterol 1 puff 10/28/23 01:36 Albuterol Sulfate (*Sp) Aerosol 1 Puff INHALATION QID PRN shortness of breath or wheezing Buspirone HCl 15 mg 10/28/23 21:00 10/28/23 21:02 Buspirone Hcl 5 Mg Tablet PO 15 mg HS JAMIR Administration Carbamazepine 200 mg 10/28/23 21:00 10/28/23 21:02 Carbamazepine Xr 200 Mg Tab.Er.12h PO 200 mg HS JAMIR Administration Diclofenac Sodium 75 mg 10/28/23 19:37 Diclofenac Sod 75 Mg Tablet.Ec PO PRN PRN Pain Famotidine 40 mg 10/29/23 09:00 10/29/23 07:58 Famotidine 20 Mg Tablet PO 40 mg DAILY JAMIR Administration Piperacillin/Tazobactam/Dextrose 3.375 gm in 50 mls @ 100 mls/hr 10/29/23 00:00 10/29/23 12:14 Zosyn 3.375 Gm/Ns 50 Ml IVPB 100 mls/hr Q6H JAMIR Administration Morphine Sulfate 2 mg 10/28/23 01:36 10/28/23 01:57 Morphine Sulfate (*Crx) 4 Mg/Ml Inj IV PUSH 2 mg Q4H PRN Administration Pain Rated 7-10 Ondansetron HCl 4 mg 10/27/23 22:31 10/28/23 01:57 Ondansetron Inj 4 Mg/2 Ml Vial IV PUSH 4 mg Q4H PRN Administration Nausea Pantoprazole Sodium 40 mg 10/28/23 21:00 10/29/23 07:58 Pantoprazole 40 Mg Tablet PO 40 mg Q12HR JAMIR Administration Radiology Results: ITS Impressions Abdomen/Pelvis CT 10/27/23 18:47 IMPRESSION: 1. New hypoenhancing region extending across the myometrium at the posterior uterine fundus which is new since the prior study suggestin
== END 2023-10-29 16:30 | disposition home or self-care (01) ==
LOC: ANHED 22:38 → ANH2MED 23:01
PROVIDERS: Internal Medicine Gastroenterology; Nurse Practitioner Family; Admitting Provider Internal Medicine; Emergency Provider Emergency Medicine; PCP Family Medicine; Visit Provider Nurse Practitioner Acute Care
PROC: (CPT 43260; principal; 2023-10-28 13:00)
DX: R10.13 Epigastric pain (principal); R74.8 Abnormal levels of other serum enzymes; D72.829 Elevated white blood cell count, unspecified; K21.9 Gastro-esophageal reflux disease without esophagitis; G47.33 Obstructive sleep apnea (adult) (pediatric); Z99.89 Dependence on other enabling machines and devices; J45.909 Unspecified asthma, uncomplicated; Z87.891 Personal history of nicotine dependence; E66.01 Morbid (severe) obesity due to excess calories; Z68.41 Body mass index [BMI] 40.0-44.9, adult; F12.90 Cannabis use, unspecified, uncomplicated
CPT/HCPCS: 43275; 43264; 36415; 71045; 74177; 74329; 80053; 81001; 81025; 83605; 83690; 85025; 85055; 87040; 87086; 87088; 94640; 96365; 99285; A9270; G0378; G0379; J0330; J1100; J2270; J2405; J2470; J2543; J2704; J7030; J7120; Q9966; Q9967

== ENCOUNTER 2024-01-23 11:58 | Emergency (ER) | payer BC, SELFPAY ==
--- NOTE | ~2024-01-23 | XR_ITS ---
EXAMINATION: XR chest 2V DATE: 01/23/2024 12:55 INDICATION: Cough. TECHNIQUE: Frontal and lateral views of the chest were obtained. COMPARISON: Chest single view 10/28/2023, CT abdomen and pelvis 10/27/2023 FINDINGS: There is no pneumonia, pleural effusion, or pneumothorax. The heart size is normal. IMPRESSION: 1. No acute cardiopulmonary disease. Reviewed, dictated and finalized at location A. [facility]
[2024-01-23 12:31] VITALS: BP 133/90; PULSE 95; RESP 16; TEMP 36.7; O2SAT 100
[2024-01-23 12:35] VITALS: BP 133/90; PULSE 95; RESP 16; TEMP 36.7; O2SAT 100
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
== END 2024-01-23 13:35 | disposition home or self-care (01) ==
PROVIDERS: Emergency Provider Nurse Practitioner Family; PCP Family Medicine
DX: R05.9 Cough, unspecified (principal); F12.90 Cannabis use, unspecified, uncomplicated; J45.909 Unspecified asthma, uncomplicated; K21.9 Gastro-esophageal reflux disease without esophagitis; F41.9 Anxiety disorder, unspecified
CPT/HCPCS: 71046; 99213; G0463

== ENCOUNTER 2025-02-10 04:22 | Emergency (ER) | payer BC, SELFPAY ==
--- NOTE | ~2025-02-10 | XR_ITS ---
Examination: XR chest 1V portable Clinical History: cough Comparison: 01/23/2024 Technique: Portable AP Findings: Heart size normal. Lungs clear. No acute bony abnormality. IMPRESSION: 1. No acute cardiopulmonary findings given portable technique. Reviewed, dictated and finalized at location R. [employer]
[2025-02-10 04:42] VITALS: BP 129/82; PULSE 98; RESP 18; TEMP 36.6; O2SAT 99
[2025-02-10 04:50] VITALS: O2SAT 99
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
[2025-02-10 06:03] VITALS: PULSE 91; RESP 22
[2025-02-10] MEDS: IPRATROPIUM 0.5 MG/ALBUTEROL SULFATE 2.5 MG (BASE) AMPUL.NEB 3 ML INHALATION (06:03)
[2025-02-10 06:08] LABS: Influenza A QL RT-PCR Negative (Negative); Influenza B QL RT-PCR Negative (Negative); RSV RNA, RT-PCR Negative (Negative); SARS-CoV-2 RNA PCR Negative (Negative)
[2025-02-10 06:13] VITALS: PULSE 94; RESP 18
[2025-02-10] MEDS: KETOROLAC 30 MG/ML VIAL (*BKC) 15 MG IM (06:26)
[2025-02-10] MEDS: BENZONATATE 100 MG CAPSULE 200 MG PO (06:26)
[2025-02-10] MEDS: dexAMETHasone SOD PHOS INJ 10 MG/ML 1 ML VIAL PO (06:26)
[2025-02-10 06:41] LABS: BEDSIDEPREGUCG Negative (Negative)
[2025-02-10 06:57] VITALS: BP 128/74; PULSE 87; RESP 18; TEMP 36.7; O2SAT 98
== END 2025-02-10 06:59 | disposition home or self-care (01) ==
PROVIDERS: Emergency Provider Student in an Organized Health Care Education/Training Program; PCP Family Medicine
DX: J06.9 Acute upper respiratory infection, unspecified (principal); Z20.822 Contact with and (suspected) exposure to COVID-19; J45.909 Unspecified asthma, uncomplicated; K21.9 Gastro-esophageal reflux disease without esophagitis; G47.33 Obstructive sleep apnea (adult) (pediatric); F41.9 Anxiety disorder, unspecified; F31.9 Bipolar disorder, unspecified; Z87.891 Personal history of nicotine dependence; Z90.49 Acquired absence of other specified parts of digestive tract; Z79.899 Other long term (current) drug therapy
CPT/HCPCS: 71045; 81025; 87637; 94640; 96372; 99283; A9270; J1100; J1885

== ENCOUNTER 2025-02-16 10:42 | Emergency (ER) | payer BC, SELFPAY ==
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
[2025-02-16 10:51] VITALS: BP 149/93; PULSE 86; RESP 16; TEMP 36.4; O2SAT 99
== END 2025-02-16 10:59 | disposition home or self-care (01) ==
PROVIDERS: Emergency Provider Nurse Practitioner Family; PCP Family Medicine
DX: H66.002 Acute suppurative otitis media without spontaneous rupture of ear drum, left ear (principal); Z87.891 Personal history of nicotine dependence; F12.90 Cannabis use, unspecified, uncomplicated; J45.909 Unspecified asthma, uncomplicated; K21.9 Gastro-esophageal reflux disease without esophagitis
CPT/HCPCS: 99213; G0463